=== PATIENT | male | born 1985 | race Hispanic/Latino ===

== ENCOUNTER 2016-07-31 19:36 | Emergency (ER) | payer MEDICAID, OTHER ==
[~2016-07-31] VITALS: Ht 170.2 cm; Wt 62.3 kg
[2016-07-31 20:00] VITALS: BP 161/88; PULSE 73; RESP 18; O2SAT 100
== END 2016-07-31 21:01 | disposition left against medical advice (07) ==
LOC: SED 19:36
DX: J98.9 Respiratory disorder, unspecified (principal)

== ENCOUNTER 2016-08-26 18:42 | Emergency (ER) | payer OTHER ==
[~2016-08-26] VITALS: Ht 170.2 cm; Wt 60.5 kg
[2016-08-26 18:47] VITALS: BP 132/65; PULSE 61; RESP 16; O2SAT 97
--- NOTE | 2016-08-26 19:27 | ED.REPORT ---
HPI-Abd Pain M Under 40 Date of Service Aug 26, 2016 ED Provider: Dr. Isaiah Tucker MD A 30 year old male presents to the ED complaining of abdominal pain that began 2 weeks ago. Patient also reports decreased appetite and dehydration.The pain is exacerbated by eating and his symptoms improved after drinking water. Patient was seen in the ED on 07/31 for dyspnea. He denies any other medical complaints at this time. Patient is a difficult historian. Nursing Notes Stated Complaint: ABD PAIN Chief Complaint: Male Abdominal Pain Nursing Notes Reviewed: Yes Allergies: Coded Allergies: No Known Allergies (Unverified , 08/26/16) Scheduled Famotidine (Pepcid) 20 Mg Tablet 20 MG PO BID Metoclopramide (Metoclopramide) 10 Mg Tablet 10 MG PO QID General Time Seen by MD: 19:27 Chief Complaint Abdominal pain Hx Obtained From: Patient Arrived By: Walk-in Sudden in Onset?: No Symptom Duration: Since onset Progression since Onset: Unchanged Location: : Diffuse Quality: Painful Radiation: : Does not radiate Severity: Current: Mild Severity: Maximum: Moderate Pertinent Negative: Pt denies other symptoms Relieved by: Eating Recent Healthcare: Recent doctor visit, Recent hospitalization Past Medical History Past Medical History Notes: No PCP Past Medical History None reported. Past Surgical History None reported. Smoking History Unknown if Ever Smoker Social History Drug Use: THC Ambulatory Status Independent Review of Systems Pt reports feeling dehydrated. Constitutional: Denies: Chills, Fever Respiratory: Denies: Shortness of breath Cardiovascular: Denies: Chest pain GI: Reports: Abdominal pain, Denies: Nausea, Vomiting Complete sys rev & neg: except as marked. Neurologic: Denies: Change LOC Physical Exam Initial Vital Signs Vital Signs (First) Date Time Temp Pulse Resp B/P Pulse Ox O2 Delivery O2 Flow Rate FiO2 08/26/16 18:47 36.4 61 16 132/65 97 Room Air Initial VS: Reviewed Head / Eyes: Atraumatic, Normocephalic, PERRL Extremities: Vascular intact, Neuro intact, No swelling, No tenderness Skin: Warm, Dry, No cyanosis Neurologic: Alert, Oriented, Nonfocal Psychiatric: Mood/affect normal, Behavior normal, Normal thought content General/Constitutional: Awake, Alert Respiratory / Chest: Atraumatic, Breath sounds NL, Breath sounds = bilat Abdomen: Atraumatic, Soft, BS normoactive Tenderness/Guarding/Rebound: Positive: Tender RUQ... (Equivocally ) Back: Atraumatic, Inspection NL Interpretation & Diagnostics ABDOMINAL US Read by Radiology IMPRESSION: No sonographic explanation for right upper quadrant abdominal pain. Dictated by: Parviz Villafana M.D. on 08/26/2016 at 21:14 Lab Results Interpretation Result Diagram: 08/26/16194408/26/161944 Test 08/26/16 19:36 08/26/16 19:45 Hold Urine Received (Received) White Blood Count 9.2th/mm3 (3.8-10.1) Red Blood Count 4.65mil/mm3 (4.40-5.80) Hemoglobin 14.2g/dL (13.8-17.2) Hematocrit 41.4% (41.0-50.0) Mean Corpuscular Volume 89.0fL (81-100) Mean Corpuscular Hemoglobin 30.5pg (27.0-35.0) Mean Corpuscular Hemoglobin Concent 34.3% (32.0-37.0) Red Cell Distribution Width 12.6% (12.3-15.4) Platelet Count 262bil/L (150-400) Neutrophils (%) (Auto) 81.6% (40-74) Lymphocytes (%) (Auto) 13.1% (14-46) Monocytes (%) (Auto) 4.8% (4-12) Eosinophils (%) (Auto) 0.1% (0-5) Basophils (%) (Auto) 0.3% (0-3) Sodium Level 140mEq/L (134-144) Potassium Level 3.8mEq/L (3.5-5.2) Chloride Level 102mEq/L (97-108) Carbon Dioxide Level 23mmol/L (18-29) Blood Urea Nitrogen 7mg/dL (6-20) Creatinine 0.79mg/dL (0.76-1.27) Estimat Glomerular Filtration Rate 123mL/min (>59) Glucose Level 96mg/dL (60-99) Calcium Level 9.5mg/dL (8.5-10.1) Total Bilirubin 0.5mg/dL (0.0-1.2) Aspartate Amino Transf (AST/SGOT) 17U/L (0-50) Alanine Aminotransferase (ALT/SGPT) 14U/L (0-44) Alkaline Phosphatase 64U/L (25-150) Total Protein 7.2g/dL (6.4-8.4) Albumin 4.6g/dL (3.4-5.0) Lipase 12U/L (13-60) Hold Shaikh Top Tube Received (Received) Lab Results Interpretation: Urine Dip: Negative Re-Eval/Medical Decision Re-Evaluation/Progress : Time of Eval: 22:02 Patient Status: Condition improved Re-Evaluation/Progress Note: Patient is rechecked. He is informed of his lab results, US results and diagnosis. All questions are addressed. He understands and agrees with the treatment plan. Counseled Regarding: Diagnosis, Lab results, Need for follow-up, When/why to return to ED Patient Discharge & Departure Primary Impression: Epigastric pain Disposition: Home Discharge Condition All VS Reviewed: Yes Condition: Stable Patient Instructions: Gastritis (ED) Additional Instructions: Emergency Department evaluation included a pelvic examination, labs and ultrasound. No significant abnormalities identified identified. Do not see any evidence for gallbladder disease which was what prompted transfer here from urgent care. We will use Reglan 10 mg one half hour before meals and at bedtime. Pepcid 20 mg twice a day. Call [facility] resident's clinic to establish primary care. Referrals: NOPCP (PCP) [facility] Scribe Attestation Portions of this note were transcribed by Gianna Adam. I, Dr. Tucker personally performed the history, physical exam and medical decision-making; I reviewed and confirmed the accuracy of the information in the transcribed note. Signed by: Moreno Hooker, 08/26/16 2200. Isaiah Tucker MD Aug 26, 2016 19:27 GIANNA ADAM Aug 26, 2016 19:39
[2016-08-26 19:56] LABS: BASOPHILS % (AUTO) 0.3 % (0-3); EOSINOPHILS % (AUTO) 0.1 % (0-5); MONOCYTES % (AUTO) 4.8 % (4-12); Mean Corpuscular Hemoglobin 30.5 pg (27.0-35.0); NEUTROPHILS % (AUTO) 81.6 % (40-74); Platelet Count 262 bil/L (150-400)
--- NOTE | 2016-08-26 21:23 | DRSVH ---
PROCEDURE: US ABDOMEN ([id number]) INDICATIONS: 30 year-old male with right upper quadrant tenderness and nausea. TECHNIQUE: Real-time scanning was performed of the abdominal and retroperitoneal organs, with image documentatio n. COMPARISON: [facility], CT, CT ABD PELVIS WO CON, 08/01/2016, 15:11. FINDINGS: Liver: Liver is normal in size and homogeneous in echotexture. Gallbladder: No gallstones or biliary sludge. Gallbladder wall thickness is normal. No pericholecyst ic fluid. Biliary ducts: Intrahepatic bile ducts are non-dilated. Extrahepatic bile duct caliber measures 3.7 mm. Normal is 6-7 mm or less in diameter, or 10 mm or less post-cholecystectomy. Pancreas: Visualized portions of the pancreas are sonographically normal. Spleen: Spleen is normal in size and homogeneous in echotexture. Kidneys: Kidneys are normal in size and echotexture. Right kidney measures 10.7 cm long; left kidne y measures 10.7 cm long. No hydronephrosis. Solitary small nonobstructing right renal stone on rece nt CT scan is unable to be visualized on ultrasound. No solid masses. Aorta: Visualized aorta is normal in caliber at less than 3 cm. Iliacs: Proximal common iliac arteries are normal in caliber at less than 2.5 cm. IVC: Intrahepatic inferior vena cava is patent. Miscellaneous: No free abdominal fluid. IMPRESSION: No sonographic explanation for right upper quadrant abdominal pain. Dictated by: Parviz Villafana M.D. on 08/26/2016 at 21:14 Approved by: Parviz Villafana M.D. on 08/26/2016 at 21:17
[2016-08-26] MEDS ORDERED: METO10TA3 PO (22:08)
[2016-08-26] MEDS ORDERED: FAMO20T PO (22:08)
[2016-08-26 22:16] VITALS: BP 124/64; PULSE 62; RESP 16; O2SAT 98
== END 2016-08-26 22:18 | disposition home or self-care (01) ==
LOC: SED 18:42
DX: R10.13 Epigastric pain (principal)

== ENCOUNTER 2016-09-01 03:01 | Emergency (ER) | payer OTHER ==
[~2016-09-01] VITALS: Ht 170.2 cm; Wt 61.4 kg
[~2016-09-01 03:01] MED LIST: FAMO20T PO; METO10TA3 PO
[2016-09-01 03:06] VITALS: BP 137/76; PULSE 58; RESP 18; O2SAT 98
--- NOTE | 2016-09-01 03:15 | ED.REPORT ---
HPI-Abd Pain M Under 40 Date of Service Sep 01, 2016 ED Provider: Satish Bullock MD Patient is a 30 year old male who presents to the ED complaining of abdominal pain that began this evening. Patient reports taking his regularly scheduled Famotidine and Reglan tonight, but he did not eat dinner. The patient only ate laffy taffy and then developed a stomach ache. He has not recently been eating candy and thinks this is what caused his symptoms. Patient states that he also felt shaky, cold, and that he had a dry throat. He reports that his lower abdomen "felt tired" and that it was difficult to breathe. He reports feeling dizzy when he stood up. He felt improved after drinking water but stated that he could not sleep due to ongoing pain. He denies fever, nausea, or vomiting. Patient was seen in the ED on 08/26/2016 for the same complaint and had a normal abdominal ultrasound of his gallbladder at that time. Patient also had a CT scan of his abdomen on 08/01/2016, which only showed a 1 mm right renal calculus.The patient denies alcohol use. He admits to smoking marijuana yesterday. Patient denies a history of diabetes mellitus. Nursing Notes Stated Complaint: STOMACH PAIN Chief Complaint: Male Abdominal Pain Nursing Notes Reviewed: Yes Allergies: Coded Allergies: No Known Allergies (Unverified , 08/26/16) Scheduled Famotidine (Pepcid) 20 Mg Tablet 20 MG PO BID Metoclopramide (Metoclopramide) 10 Mg Tablet 10 MG PO QID General Time Seen by MD: 03:08 Chief Complaint Abdominal pain Hx Obtained From: Patient Arrived By: Walk-in Sudden in Onset?: No Onset Occurred: 1 - 4 hours ago Symptom Duration: Since onset Location: : Diffuse Quality: Painful Severity: Current: Moderate Severity: Maximum: Severe Recent Healthcare: Recent doctor visit Similar Sx Previous: Yes Past Medical History Past Medical History None reported. Denies: Diabetes mellitus Past Surgical History None reported. Smoking History Unknown if Ever Smoker Social History Alcohol Use: Denies alcohol use Drug Use: THC Other Social History: Local resident Ambulatory Status Independent Review of Systems Constitutional: Reports: Chills, Denies: Fever GI: Reports: Abdominal pain, Denies: Nausea, Vomiting Complete sys rev & neg: except as marked. Ears / Nose / Throat: Reports: Sore throat (dry throat) Neurologic: Reports: Dizziness, Shaking Physical Exam Initial Vital Signs Vital Signs (First) Date Time Temp Pulse Resp B/P Pulse Ox O2 Delivery O2 Flow Rate FiO2 09/01/16 03:06 36.7 58 18 137/76 98 Room Air Initial VS: Reviewed Head / Eyes: Atraumatic, Normocephalic, PERRL ENT: Conjunctiva normal, No scleral icterus Neck: Non-tender, Full range of motion Skin: Warm, Dry, No cyanosis Neurologic: Alert, Oriented, Nonfocal Psychiatric: Mood/affect normal, Behavior normal, Normal thought content General/Constitutional: Awake, Alert, No acute distress Respiratory / Chest: Breath sounds NL, Breath sounds = bilat, No respiratory distress Cardiovascular: Heart rate NL, Regular rhythm Abdomen: Soft, Non-tender, No guarding, No rebound Back: No midline vertebral tend, No CVA tenderness Re-Eval/Medical Decision Source of Hx: Old records Re-Evaluation/Progress #1: Time of Eval: 03:54 Re-Evaluation/Progress Note: Patient reports a right-sided headache following GI cocktail. Unsure if it improved his abdominal pain. Re-Evaluation/Progress #2: Time of Eval: 04:43 Patient Status: Condition improved Re-Evaluation/Progress Note: Patient understands and agrees with the plan to be discharged home. Discharge instructions and follow-up discussed. All questions were addressed. Return to the ED warnings given. Counseled Regarding: Diagnosis, Need for follow-up, When/why to return to ED Patient Discharge & Departure Primary Impression: Epigastric pain Disposition: Home Discharge Condition All VS Reviewed: Yes Condition: Stable Patient Instructions: Gastroesophageal Reflux Disease (ED) Additional Instructions: Continue the antacid medications that you were given. Continue to eat well, no candy. Follow-up with your regular doctor if you have persistent symptoms. Referrals: [facility] Scribe Attestation Portions of this note were transcribed by Daisy Molina. I, Dr. Bullock personally performed the history, physical exam and medical decision-making; I reviewed and confirmed the accuracy of the information in the transcribed note. Signed by: Moreno Faye, 09/01/2016 0451 Satish Bullock MD Sep 01, 2016 03:15 Daisy Molina Sep 01, 2016 03:26
[2016-09-01] MEDS ORDERED: Alum-Mag Hydrox-Simeth 30 mL Suspension PO ONE (03:25)
[2016-09-01 04:50] VITALS: BP 130/72; PULSE 62; RESP 16; O2SAT 99
== END 2016-09-01 04:52 | disposition home or self-care (01) ==
LOC: SED 03:01
DX: R10.13 Epigastric pain (principal)

== ENCOUNTER 2016-09-06 03:39 | Emergency (ER) | payer OTHER ==
[~2016-09-06] VITALS: Ht 170.2 cm; Wt 59.1 kg
[2016-09-06 03:46] VITALS: BP 136/87; PULSE 51; RESP 16; O2SAT 99
[2016-09-06] MEDS ORDERED: diphenhydrAMINE 25 mg Capsule PO ONE (05:15)
--- NOTE | 2016-09-06 05:51 | ED.REPORT ---
HPI-General Illness Date of Service Sep 06, 2016 ED Provider: Trae Bahena MD 30yoM with PMH remarkable for a recent diagnosis of acid reflux disease and gastroparesis presents with throat tightness, stomach pains, headaches, and facial twitching. The patient has been seen several times over the last few weeks for abdominal pain, and was recently started on Reglan and Famotidine. The patient believes that he is having side effects of Reglan. HE states that he looked up the side effects online. Nursing Notes Stated Complaint: POSSIBLE MEDICATION REACTION Chief Complaint: Male Abdominal Pain Nursing Notes Reviewed: Yes Allergies: Coded Allergies: No Known Allergies (Unverified , 09/06/16) Scheduled Famotidine (Pepcid) 20 Mg Tablet 20 MG PO BID Scheduled PRN Ondansetron ODT (Zofran ODT) 4 Mg Tablet 4 MG PO Q4H PRN PRN For Nausea General Time Seen by MD: 04:40 Chief Complaint Abdominal pain, Not feeling well Hx Obtained From: Patient Arrived By: Walk-in Sudden in Onset?: No Onset Occurred: 2 days ago Symptom Duration: Intermittent Location: : Abdomen: Head Quality: Cramping, Painful, Sharp Severity: Current: Mild Severity: Maximum: Moderate Recent Healthcare: Recent testing, Previous diagnosis, Prior workup Similar Sx Previous: No Past Medical History Past Medical History None reported. Past Surgical History None reported. Smoking History Unknown if Ever Smoker Social History works at the [employer] Alcohol Use: Denies alcohol use Drug Use: THC Other Social History: Local resident Ambulatory Status Independent Review of Systems Full Review of Systems Constitutional: Reports: Chills Ears / Nose / Throat: Reports: Throat pain, Throat swelling Respiratory: Reports: Shortness of breath Cardiovascular: Reports: Palpitations GI: Reports: Abdominal pain, Belching, Diarrhea, Nausea Male: Denies Dysuria, Denies Hematuria Musculoskeletal: Denies: Extremity swelling Hematologic: Denies Bleeding, Denies Bruising Endocrine: Reports: Cold intolerance, Denies: Weight gain Skin: Denies Rash, Denies Unexplained bruises Allergy / Immune: Denies: Itching, Rhinorrhea Neurologic: Reports: Bowel dysfunction, Headache, Denies: Confusion, Numbness Psychiatric: Denies: Change mental status, Confusion Complete sys rev & neg: except as marked. Physical Exam Vital Signs Vital Signs Date Time Temp Pulse Resp B/P Pulse Ox O2 Delivery O2 Flow Rate FiO2 09/06/16 06:18 36.6 60 18 132/86 99 Room Air 09/06/16 03:46 36.3 51 16 136/87 99 Room Air Initial VS: Reviewed General/Constitutional: Well-developed, Well-nourished Head / Eyes: Atraumatic, Normocephalic, PERRL ENT: Mucous membranes moist, Conjunctiva normal, No scleral icterus Neck: Supple, Non-tender, Full range of motion Respiratory: Breath sounds normal, Clear to auscultation, No respiratory distress Cardiovascular: Regular rate & rhythm, Heart sounds normal, Intact distal pulses Abdomen / GI: No rebound, No distention Back: No CVA tenderness Lymphatic: No lymphadenopathy Extremities: Vascular intact, Neuro intact, No swelling, No tenderness Skin: Warm, Dry, No cyanosis Neurologic: Alert, Oriented, Nonfocal Psychiatric: Mood/affect normal, Behavior normal, Normal thought content General/Constitutional: Awake, Alert, Well appearing Head / Eyes: Normocephalic, PERRL, Conjunctiva NL ENT: Airway patent, Mucous membranes moist, Pharynx NL Abdomen: Atraumatic, BS normoactive, No distention, No palpable mass, No pulsatile mass Tenderness/Guarding/Rebound: Positive: Guarding voluntary, Tender diffuse Re-Eval/Medical Decision Med Decision/Clinical Course Reglan has notoriously profuse side effects. Recommendations to stop Reglan. We will given Zofran to cover any nausea. 30-year-old with background history of anxiety presents with multiple symptoms after beginning Reglan. His anxiety and twitching and general malaise may well be due to Reglan as it is not curative of anything, and is making him feel worse , he was advised to quit Reglan. He was provided with Benadryl for acute symptom control. Discharged in stable condition for follow-up with a local physician, as he has been seen sequentially in the emergency department for outpatient care. He was advised to seek outpatient management for continuity. Referred to [facility]. Discharge & Departure Primary Impression: Medication side effects Additional Impressions: Generalized abdominal pain Acid reflux disease Anxiety about health Disposition: Home Discharge Condition All VS Reviewed: Yes Condition: Stable Patient Instructions: Diabetic gastroparesis (GEN) Additional Instructions: During your visit to [facility] Emergency Department on 9/14 we did not repeat any testing given the numerous studies already performed. Your constellation of symptoms are likely due to your new medication Metoclopramide. WE recommend stopping this medication and see if the symptoms resolve. We also gave you a medication Benedryl which helped improve some symptoms. You likely will need outpatient studies performed if you continue to have abdominal complaints. We have attached the contact information for a primary care physician in the area that is accepting new patients. Please try and schedule a ED follow up appointment with your new primary care physician in 1 weeks time following your emergency department visit for medication checks and general well-being. Your vital signs were stable and safe for discharge. We will send you home with: - Zofran for nausea which is a fairly benign medication with hopefully no side effects or much more mild side effects Do not hesitate to call emergency services or your primary care physician if you experience any of the following. - High unrelenting fevers. - Uncontrolled vomiting. - Severe hypertension. - severe dizziness or loss of consciousness. - Chest pain or severe shortness of breath. - worsening abdominal pain which does not improve with time Referrals: NOPCP (PCP) Claudette Clayton MD Attending Statement As attending of record for this patient, I conducted an independent history and physical exam, and agree with the resident documentation as above, and as amended. copies to: BETTIE CLAYTON MD, NICHOLAS K DO Sep 06, 2016 05:08 Trae Bahena MD Sep 06, 2016 07:42
[2016-09-06] MEDS ORDERED: ONDA4TAB9 PO (05:56)
[2016-09-06 06:18] VITALS: BP 132/86; PULSE 60; RESP 18; O2SAT 99
== END 2016-09-06 05:56 | disposition home or self-care (01) ==
LOC: SED 03:39
DX: R09.89 Other specified symptoms and signs involving the circulatory and respiratory systems (principal); R10.84 Generalized abdominal pain; R51 Headache; R25.3 Fasciculation; T45.0X5A Adverse effect of antiallergic and antiemetic drugs, initial encounter; Y93.89 Activity, other specified; Y92.89 Other specified places as the place of occurrence of the external cause; Y99.8 Other external cause status; K21.9 Gastro-esophageal reflux disease without esophagitis; F41.9 Anxiety disorder, unspecified

== ENCOUNTER 2016-09-11 15:30 | Emergency (ER) | payer OTHER ==
[~2016-09-11] VITALS: Ht 170.2 cm; Wt 56.8 kg
[~2016-09-11 15:30] MED LIST changes: -METO10TA3 PO; +ONDA4TAB9 PO
[2016-09-11 15:40] VITALS: BP 145/85; PULSE 49; RESP 14; O2SAT 99
[2016-09-11 16:48] LABS: BASOPHILS % (AUTO) 0.8 % (0-3); MONOCYTES % (AUTO) 4.5 % (4-12); Mean Corpuscular Volume 88.8 fL (81-100); NEUTROPHILS % (AUTO) 68.3 % (40-74); Platelet Count 267 bil/L (150-400)
--- NOTE | 2016-09-11 17:13 | ED.REPORT ---
HPI-General Illness Date of Service Sep 11, 2016 ED Provider: Doc,Ed MD History of Present Illness: 30-year-old male here for multiple complaints. Blurry vision intermittently when watching TV. He has not had his eyes checked in a long time. He is been feeling weak. He is been having epigastric and right lower quadrant abdominal pain after eating only. His right lower quadrant is worse than his epigastric area. Evaluated for this in the past with no real answers. He has not been able to eat as much. He has had a 25 pound weight loss he states in the last month. He states his thyroid hurts. Denies diarrhea or nausea denies urinary symptoms. Denies headache. He has trouble sleeping at night and he feels like his heart races and he gets a little dizzy. He thinks maybe he is anxious or depressed, denies SI Nursing Notes Stated Complaint: BLURRY VISION, FEELS WEAK Chief Complaint: General Complaint Allergies: Coded Allergies: No Known Allergies (Unverified , 09/06/16) Scheduled Famotidine (Pepcid) 20 Mg Tablet 20 MG PO BID Pantoprazole DR (Protonix) 40 Mg Tablet 40 MG PO DAILY Scheduled PRN Ondansetron ODT (Zofran ODT) 4 Mg Tablet 4 MG PO Q4H PRN PRN For Nausea General Time Seen by MD: 17:12 Chief Complaint Multip medical complaints Onset Occurred: More than a week ago... (1 month) Location: : Abdomen Quality: Same as prior Severity: Current: Moderate Severity: Maximum: Moderate Recent Healthcare: Recent doctor visit Similar Sx Previous: Yes Past Medical History Past Medical History None reported. Past Surgical History None reported. Smoking History Unknown if Ever Smoker Social History works at the [employer] Alcohol Use: Denies alcohol use Drug Use: THC Other Social History: Local resident Ambulatory Status Independent Review of Systems Full Review of Systems Constitutional: Reports: Fatigue, Denies: Fever Ears / Nose / Throat: Reports: Throat pain Respiratory: Denies: Dyspnea on exertion Cardiovascular: Denies: Chest pain GI: Reports: Abdominal pain Complete sys rev & neg: except as marked. Physical Exam Vital Signs Vital Signs Date Time Temp Pulse Resp B/P Pulse Ox O2 Delivery O2 Flow Rate FiO2 09/11/16 20:48 36.7 48 16 115/42 97 Room Air 09/11/16 19:10 36.4 48 18 113/69 98 Room Air 09/11/16 15:40 36.6 49 14 145/85 99 Room Air Initial VS: Reviewed General/Constitutional: Well-developed, Well-nourished Head / Eyes: Atraumatic, Normocephalic, PERRL ENT: Mucous membranes moist, Conjunctiva normal, No scleral icterus Neck: Supple, Non-tender, Full range of motion Respiratory: Breath sounds normal, Clear to auscultation, No respiratory distress Cardiovascular: Regular rate & rhythm, Heart sounds normal, Intact distal pulses Abdomen / GI: Soft, Non-tender, No guarding, No rebound, No distention Lymphatic: No lymphadenopathy Extremities: No swelling, No tenderness Skin: Warm, Dry, No cyanosis Neurologic: Alert, Oriented, Nonfocal Psychiatric: Mood/affect normal, Behavior normal, Normal thought content Neck: Atraumatic, Supple no thyroidmegaly Interpretation & Diagnostics Lab Results Interpretation Result Diagram: 09/11/16 1638 09/11/16 1638 Test 09/11/16 16:38 09/11/16 17:22 09/11/16 19:29 White Blood Count 6.5th/mm3 (3.8-10.1) Red Blood Count 5.16mil/mm3 (4.40-5.80) Hemoglobin 16.0g/dL (13.8-17.2) Hematocrit 45.8% (41.0-50.0) Mean Corpuscular Volume 88.8fL (81-100) Mean Corpuscular Hemoglobin 31.0pg (27.0-35.0) Mean Corpuscular Hemoglobin Concent 34.9% (32.0-37.0) Red Cell Distribution Width 12.8% (12.3-15.4) Platelet Count 267bil/L (150-400) Neutrophils (%) (Auto) 68.3% (40-74) Lymphocytes (%) (Auto) 24.4% (14-46) Monocytes (%) (Auto) 4.5% (4-12) Eosinophils (%) (Auto) 2.0% (0-5) Basophils (%) (Auto) 0.8% (0-3) Sodium Level 139mEq/L (134-144) Potassium Level 4.6mEq/L (3.5-5.2) Chloride Level 101mEq/L (97-108) Carbon Dioxide Level 24mmol/L (18-29) Blood Urea Nitrogen 16mg/dL (6-20) Creatinine 0.86mg/dL (0.76-1.27) Estimat Glomerular Filtration Rate 112mL/min (>59) Glucose Level 103mg/dL (60-99) Calcium Level 9.6mg/dL (8.5-10.1) Magnesium Level 2.0mg/dL (1.6-2.6) Total Bilirubin 0.9mg/dL (0.0-1.2) Aspartate Amino Transf (AST/SGOT) 15U/L (0-50) Alanine Aminotransferase (ALT/SGPT) 12U/L (0-44) Alkaline Phosphatase 65U/L (25-150) Total Protein 7.5g/dL (6.4-8.4) Albumin 4.8g/dL (3.4-5.0) Lipase 14U/L (13-60) Thyroid Stimulating Hormone (TSH) 1.100uIU/mL (0.450-4.500) Urine Color Yellow (YELLOW) Urine Appearance Clear (CLEAR,HAZY) Urine pH 7.0 (5.0-8.0) Urine Specific Horatio 1.020 (1.003-1.035) Urine Protein Negativemg/dL (NEG,TRACE) Urine Glucose (UA) Negativemg/dL (NEGATIVE) Urine Ketones 15mg/dL (NEGATIVE) Urine Occult Blood Negative (NEGATIVE) Urine Nitrite Negative (NEGATIVE) Urine Bilirubin Negative (NEGATIVE) Urine Urobilinogen Normalmg/dL (NORMAL) Urine Leukocyte Esterase Negative (NEGATIVE) Urine RBC 0-2/hpf (0-2) Urine WBC 0-5/hpf (0-5) Urine Epithelial Cells Occasional/hpf (NONE-MOD) Urine Crystals None seen (NONE SEEN) Urine Bacteria None/hpf (NONE-FEW) Urine Hyaline Casts None/lpf (NONE) Urine Granular Casts None seen (NONE SEEN) Urine Waxy Casts None seen (NONE SEEN) Urine Red Blood Cell Casts None seen (NONE SEEN) Urine White Blood Cell Casts None seen (NONE SEEN) Urine Mucus None seen (None Seen) Urine Trichomonas None seen (NONE SEEN) Urine Yeast None (NONE SEEN) Urinalysis Comment None Urine Culture Reflexed Not indicated Hold Urine Received (Received) Re-Eval/Medical Decision Med Decision/Clinical Course Discussed normal labs with patient and treatment for epigastric pain and acid reflux patient understands and will follow up with GI or [facility] discussed good sleep hygiene with pt, try OTC sleep aids. will make apt with optomotrist to check vision as well. Discharge & Departure Shift Change Sign-Out Laboratory Evaluation: Lab evaluation discussed Procedures: Results discussed Primary Impression: Acid reflux disease Esophagitis presence: with esophagitis Qualified Code: K21.0 - Gastro- esophageal reflux disease with esophagitis Additional Impression: Anxiety about health Disposition: Home Discharge Condition All VS Reviewed: Yes Condition: Stable Patient Instructions: Gastroesophageal Reflux Disease (ED) Additional Instructions: Take prescribed medication every night 30 minutes before dinner. eats small meals throughout the day. Avoid fatty foods and spicy foods and any food that makes her stomach pain increased. Lots of water, returned if fevers or worsening condition, including nausea or vomiting or diarrhea. Do not eat right before bed. Follow-up with Located within [facility] residency clinic this week. You are also given a referral to GI if symptoms are not alleviated with medication. See optomotrist to check vision and try OTC sleep meds as discussed Referrals: NOPCP (PCP) Alonzo Mann MD [facility] Provider for APC: Isaiah Tucker MD, Linnea K ARNP Sep 11, 2016 17:13
[2016-09-11 19:10] VITALS: BP 113/69; PULSE 48; RESP 18; O2SAT 98
[2016-09-11 20:17] LABS: APPEARANCE,URINE CLEAR (CLEAR,HAZY); COLOR,URINE YELLOW (YELLOW); OCCULT BLOOD,URINE NEGATIVE (NEGATIVE); UROBILINOGEN,URINE NORMAL (NORMAL)
[2016-09-11] MEDS ORDERED: Pantoprazole 40 mg ER24 Tablet PO ONE (20:35)
[2016-09-11] MEDS ORDERED: PANT40TA2 PO (20:39)
[2016-09-11 20:48] VITALS: BP 115/42; PULSE 48; RESP 16; O2SAT 97
== END 2016-09-11 20:49 | disposition home or self-care (01) ==
LOC: SED 15:30
DX: K21.0 Gastro-esophageal reflux disease with esophagitis (principal); F41.9 Anxiety disorder, unspecified; G47.9 Sleep disorder, unspecified; R53.1 Weakness; R63.4 Abnormal weight loss; R00.2 Palpitations; R42 Dizziness and giddiness